=== PATIENT | male | born 1960 | race Caucasian/White ===

== ENCOUNTER 2020-10-16 11:35 | Emergency (ER) | payer MEDICARE, OTHER ==
[~2020-10-16] VITALS: Ht 180.3 cm; Wt 74.8 kg
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
[2020-10-16] MEDS ORDERED: HALOPERIDOL LACTATE INJ 5 MG/ML VIAL ONE (12:26)
[2020-10-16] MEDS ORDERED: diphenhydrAMINE HCL 50 MG/ML VIAL ONE (12:26)
[2020-10-16] MEDS ORDERED: LORAZEPAM INJ 2 MG/ML VIAL ONE (12:30)
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
--- NOTE | 2020-10-16 12:38 | NUR ---
PT MEDICATED ORDERED. SEE EMAR. PLACED ON MONITOR. WILL CONTINUE TO MONITOR.
[2020-10-16] MEDS ORDERED: LORAZEPAM INJ 2 MG/ML VIAL IM ONE (13:00)
[2020-10-16] MEDS ORDERED: diphenhydrAMINE HCL 50 MG/ML VIAL IM ONE (13:00)
--- NOTE | 2020-10-16 14:21 | NUR ---
SS consult: SS Consult requested for ETOH & Homelessness. The pt. is a 59 year old [place] male. Per EMR, the pt. was medicated due to behavioral issues. Consequently, the pt. is dleeping and not interviewable at [facility] time. SW placed homeless waiver & homeless resources for pt. upon discharge. SW will be available as needed.
--- NOTE | 2020-10-16 17:00 | NUR ---
PT IS AWAKE. WANTS TO LEAVE. AMBULATORY W/ STEADY GAIT. ERMD MADE AWARE. PT WAS PROVIDE W/ MEAL TRAY.
--- NOTE | 2020-10-16 18:19 | NUR ---
PT IS MEDICALLY CLEARED. YELLING, STATES "I NEED TO GO NOW" AND "GET ME OUT OF HERE." REFUSING TO SIGN ACI. AMBULATED W/ STEADY GAIT.
[2020-10-16 18:22] VITALS: BP 128/74
== END 2020-10-16 18:22 | disposition home or self-care (01) ==
LOC: ER 12:15
DX: F10.129 Alcohol abuse with intoxication, unspecified (principal); R45.1 Restlessness and agitation; I10 Essential (primary) hypertension; Z88.8 Allergy status to other drugs, medicaments and biological substances; Z59.0 Homelessness; Y90.9 Presence of alcohol in blood, level not specified
CPT/HCPCS: 96372 ×2; 99285; J1200; J2060; J7040; J1630